=== PATIENT | male | born 1960 | race Caucasian/White ===

== ENCOUNTER 2019-02-09 19:32 | Emergency (ER) | payer OTHER, SELFPAY ==
[2019-02-09 19:34] VITALS: BP 170/105; PULSE 107; RESP 25; TEMP 36.8; O2SAT 98
--- NOTE | 2019-02-09 19:52 | W.ED.GENAD ---
Discharge Plan Disposition Patient Disposition: [facility] Condition: Stable Discharge Details Chief Complaint: ETOHWithdr Clinical Impression: Alcohol withdrawal Primary Care Provider: Elvie Kim ED Provider: Garret Cole and Edward Rx's Prescriptions: Continued allopurinol 300 mg Tablet 300 mg PO DAILY RF: 0 lisinopril 20 mg Tablet DAILY RF: 0 amlodipine 10 mg Tablet DAILY RF: 0 Discharge Instructions Instructions: Alcohol Withdrawal (ED) Additional Instructions: You were treated for alcohol withdrawal and your vital signs have stabilized. Your laboratory studies are unremarkable. You were given a dose of Serax before discharge. The [facility] has Librium if needed. Discharge Data Discharge Date/Time-TO BE ENTERED AT DEPARTURE: 02/10/19 01:20 Medical Decision Making Patient presenting to ED with alcohol withdrawal. His initial CIWA score is 12. IV established and fluids started. 2 mg Ativan IV ordered. Laboratory studies sent. Also complaining of bilateral foot pain related to gout. He is given Toradol for this. On initial reevaluation patient does feel a little better but is now complaining of some abdominal discomfort. He also continues to have some nausea. His abdomen remains benign. Laboratory studies show a normal white count and hemoglobin. Electrolytes with slightly low sodium and chloride but normal renal function. Potassium is low normal. Magnesium low at 1.1. 2 g of IV mag replacement is ordered. Glucose is fine. Liver function okay. Lipase normal. Patient given another liter of fluid, Reglan and Pepcid IV. CIWA score 3. On second reevaluation patient sleeping and comfortable. CIWA now 2. Vitals now normal. I spoke to the nurse at the [facility] at the halfway. They have Librium there which they can continue. He is given oral Serax here prior to discharge. He is released back into custody of [employer]. Lab Data Lab results reviewed: Yes I reviewed the patient's lab results. HPI General Mode of arrival: EMS. Date/Time Provider Initiated Documentation: 02/09/19 19:52. Limitations to Documentation: no limitations. Information obtained by: patient, EMS and RN notes reviewed. HPI Narrative: Patient presents to ED by ambulance from [facility] for evaluation of alcohol withdrawal. Patient reports to me that he had been sober for 7 years. About 3 to 4 months ago, he began drinking again. He was arrested 2 days ago and incarcerated. He has subsequently developed nausea, vomiting, not feeling well, shakiness. He also reports bilateral foot pain which he assumes is related to his gout as he has not taken his medications recently. He denies having chest pain, shortness of breath, abdominal pain. Related Data Home Medications Medication Instructions Recorded Confirmed allopurinol 300 mg PO DAILY 02/09/19 02/09/19 amlodipine DAILY 02/09/19 lisinopril DAILY 02/09/19 Allergies Allergy/AdvReac Type Severity Reaction Status Date / Time No Known Allergies Allergy Unverified 02/09/19 19:40 General Stated Complaint: ETOHWithdr PASTOR: 2 Review of Systems Narrative: As documented in HPI otherwise negative as below. Const: no fever, chills, weakness Resp: no cough, SOB, pleuritic pain CV: no CP, diaphoresis, edema, syncope GI: nausea and vomiting; no abdominal pain, diarrhea Neuro: no headache, numbness, focal weakness, confusion PFSH Medical History Gout (Chronic) HTN (hypertension) (Chronic) Surgical History S/P shoulder surgery (Chronic) S/P TKR (total knee replacement) (Chronic) bilateral Social History Smoking/Tobacco Use Status: Never Alcohol Intake: current Alcohol Intake frequency: 3 or more drinks per day Alcohol type: hard liquor Drug use: Never Substance use type: does not use Do you feel safe at home: Yes Do you feel safe in your relationship?: Yes Exam Narrative Exam Narrative: Vitals: Afebrile. Elevated blood pressure along with tachycardia and tachypnea. Normal room air pulse ox. Const: WDWN male who appears mildly confused and shaky. HEENT: NC/AT. Normal facial exam. Eyes: Normal conjunctiva and sclera. Neck: Supple. Trachea midline. Lungs: Normal respiratory effort. Lungs are clear. Cor: RRR without murmur/gallop. Tachy. Good radial pulses. GI: Soft. NT/ND. No guarding or rebound. Back: Neuro: A+O x 3 but seems mildly confused and slow to answer at time. Speech is normal. Cranial nerves are grossly intact. No focal motor or sensory deficits. Ext: No C/C/E. Skin: Warm and dry without rash. Course Vital Signs Vital signs: Vital Signs Temperature 98.2 F 02/09/19 19:34 Pulse 107 H 02/09/19 19:34 Respiratory Rate 25 H 02/09/19 19:34 Blood Pressure 170/105 H 02/09/19 19:34 Pulse Oximetry 98 02/09/19 19:34 Temperature 98.2 F 02/09/19 19:34 Temperature Source Skin 02/09/19 19:34 Pulse 107 H 02/09/19 19:34 Respiratory Rate 25 H 02/09/19 19:34 Respiratory Effort 02/09/19 19:41 Respiratory Pattern Normal 02/09/19 19:41 Blood Pressure 170/105 H 02/09/19 19:34 Blood Pressure Position Supine 02/09/19 19:34 Pulse Oximetry 98 02/09/19 19:34 Oxygen Delivery Method Room Air 02/09/19 19:34 Oxygen Flow Rate 0 02/09/19 19:34
[2019-02-09] MEDS: Lactated Ringers 1,000 ML 1000 ML IV ×2 (20:28→23:29)
[2019-02-09] MEDS: Ketorolac 15 MG/ML VIAL IVP (20:29)
[2019-02-09] MEDS: Ondansetron 4 MG/2 ML VIAL IV (20:30)
[2019-02-09] MEDS: LORazepam 2 MG/ML VIAL IVP (20:30)
[2019-02-09 20:33] LABS: Abs Immature Grans 0.04 k/cumm (0.0-0.09); Absolute Basophil Count 0.02 k/cumm (0.0-0.2); Absolute Eosinophil Count 0.04 k/cumm (0.0-0.7); Absolute Lymphocyte Count 1.16 k/cumm (1.2-3.4); Absolute Neutrophil Count 7.16 k/cumm (1.2-6.7); Basophils % 0.2; Eosinophils % 0.4; HCT 40.5 % (40.0-50.0); HGB 14.4 g/dL (13.5-17.5); Immature Grans % 0.4; Lymphocytes % 12.3; Mean Corp. HGB Concentration 35.6 g/dL (32.0-36.0); Mean Corpuscular Hemoglobin 34.5 pg (27.0-33.0); Mean Corpuscular Volume 97.1 fL (80-95); Mean Platelet Volume 10.3 fL (8.0-11.0); Monocytes % 10.6; Neutrophils % 76.1; Platelet Count 211 x1000/uL (130-400); RBC 4.17 m/cumm (4.50-6.00); RBC Distribution Width 13.5 % (11.8-14.1); White Blood Cell Count 9.42 k/cumm (4.4-10.8)
[2019-02-09 20:46] LABS: ALT 89 U/L (16-63); AST 69 U/L (15-37); Albumin 4.3 g/dL (3.4-5.0); Alkaline Phosphatase 75 U/L (46-116); Anion Gap 11.8 mmol/L (3-11); BUN 17 mg/dL (7-18); Bilirubin, Total 1.5 mg/dL (0.2-1.0); CO2 29.2 mmol/L (21.0-32.0); CREATININE 1.08 mg/dL (0.70-1.30); Chloride 93 mmol/L (98-107); Glucose 119 mg/dL (74-106); Lipase 263 U/L (73-393); Magnesium 1.1 mg/dL (1.8-2.4); Potassium 3.5 mmol/L (3.5-5.1); Sodium 134 mmol/L (136-145)
[2019-02-09 21:29] VITALS: BP 137/102; PULSE 98; TEMP 37; O2SAT 95
--- NOTE | 2019-02-09 21:55 | NUR.NOTE ---
Nursing Note: Patient resting, states he just need to sleep. [employer] officers remain at bedside. No visible tremors noted at this time.
[2019-02-09] MEDS: MAGNESIUM SULFATE 2 GM/50 ML BAG IVPB (22:06)
[2019-02-09] MEDS: Metoclopramide 10 MG/2 ML VIAL IVP (23:23)
[2019-02-09] MEDS: FAMOTIDINE 20 MG/50 ML BAG 200 MG IVPB (23:25)
--- NOTE | 2019-02-09 23:40 | NUR.NOTE ---
Nursing Note: Patient laying in bed, eyes closed. [employer]rections officers at bedside. No vomiting since arrival. No tremors noted.
[2019-02-10 00:16] VITALS: BP 124/78; PULSE 70; RESP 16; O2SAT 96
[2019-02-10 01:16] VITALS: BP 138/69; PULSE 68; RESP 16; O2SAT 99
--- NOTE | 2019-02-10 01:17 | NUR.NOTE ---
med a/o. IV removed. Discharge instructions reviewed with verbal understanding. aware to f/u with [facility]. To exit with corrections officers.
== END 2019-02-10 01:20 | disposition home or self-care (01) ==
PROVIDERS: Emergency Provider Emergency Medicine
DX: F10.230 Alcohol dependence with withdrawal, uncomplicated (principal); M10.9 Gout, unspecified; E83.42 Hypomagnesemia; I10 Essential (primary) hypertension
CPT/HCPCS: 36415; 80053; 83690; 96361; 96365; 96366; 96368; 96375; 99284; 83735; 85025; J1885; J2060; J2405; J2765